=== PATIENT | male | born 1975 | race African-American/Black ===

== ENCOUNTER 2018-05-14 03:31 | Emergency (ER) | payer BC ==
[~2018-05-14] VITALS: Ht 182.9 cm; Wt 136.1 kg
[~2018-05-14 03:31] MED LIST: FLEXERIL PO; NORCO 5-325 TA1 EACH PO
[2018-05-14] MEDS ORDERED: EPIPEN 2-P0.3 MG/0.3 IM (04:03)
[2018-05-14] MEDS ORDERED: PREDNISONE 20 M20 MG PO (04:03)
[2018-05-14] MEDS ORDERED: LIPITOR 20 MG T20 M1 PO (04:11)
[2018-05-14] MEDS ORDERED: MICROZIDE12.5 MG PO (04:12)
[2018-05-14] MEDS ORDERED: ATACAND32 MG PO (04:12)
[2018-05-14] MEDS ORDERED: CARVEDILOL3.125 MG PO (04:12)
[2018-05-14] MEDS ORDERED: CYCLOBENZAPRINE5 MG PO (04:13)
[2018-05-14] MEDS ORDERED: ASPIR 8181 MG PO (04:13)
[2018-05-14 05:35] VITALS: BP 124/67
--- NOTE | 2018-05-14 08:33 | EKG ---
[place] [address] [facility] [place] [address] ELECTROCARDIOGRAM REPORT Name: LINDYDREW Room #: [id number] ������������������ Admission: 05/14/18 ������������������ Attend Phys: Discharge: 05/14/18 ������������������ Date of : 71 Report #: [id number] ����������������������������������������������������������������� [id number] THIS REPORT FOR: //name// [facility] ED Test Date: 2018-05-14 Test Time: 04:17:05 Pat Name: DREW ISRAEL Department: Room: Gender: M [employer] Facility Operator: Micah KOHLER : 1975 Requested By: Sanjeev Markham Order Number: [id number] MD: Devin Luciano Measurements Intervals Arthur Rate: 71 P: 63 IN: 154 QRS: 41 QRSD: 100 T: 8 QT: 386 QTc: 420 Interpretive Statements Sinus rhythm No significant abnormality Baseline wander in lead(s) V6 No previous ECG available for comparison Electronically Signed On 05-14-2018 8:32:57 [employer] by Devin Luciano [email or web address] ��������������������������������������������� <ELECTRONICALLY SIGNED> ���������������������������������������� By: Devin Luciano MD, [facility] ��������������������������������������������� 05/14/18 0832 0417 0417 Devin Luciano MD, FACC /EPI
== END 2018-05-14 05:35 | disposition home or self-care (01) ==
LOC: ER 03:31
DX: T78.09XA Anaphylactic reaction due to other food products, initial encounter (principal)